=== PATIENT | female | born 1960 | race Caucasian/White ===

== ENCOUNTER → 2016-10-05 | Outpatient (CLI) | payer OTHER ==
[~2016-10-05] MED LIST: ATEN-173 PO; BUPR-83 PO; CLON0.5T3 PO; CYAN10002 IM; FLNCV PO; FRRS300 PO; PANT40TA PO
[2016-10-05 18:06] LABS: BASO ABS # 0.05 K/uL (0-0.2); COMPLETE YES; HEMATOCRIT 34.5 % (37-47); IG% 0.2 %; LYMPH % 21.8 %; MEAN CELL VOLUME 93.5 fL (80-100); MEAN CORPUSCULAR HEMOGLOBIN 30.6 pg (25-34); MEAN CORPUSCULAR HGB CONC 32.8 g/dl (32-36); MEAN PLATELET VOLUME 10.2 fL (7.4-10.4); MONO % 9.5 %; NEUT % 62.5 %; PLATELET COUNT 254 K/uL (130-400); RED BLOOD COUNT 3.69 M/uL (4.2-5.4); WHITE BLOOD COUNT 5.05 K/uL (4.8-10.8)
--- NOTE | 2016-10-05 18:13 | DIAGNOSTIC IMAGING REPORT ---
CERVICAL SPINE 2 OR 3 VIEWS CLINICAL HISTORY: M54.12 Cervical radiculopathY COMPARISON STUDY: No previous studies for comparison. FINDINGS: The prevertebral soft tissues are normal. There are moderately multilevel degenerative changes most pronounced the C4-5 through C7-T1 levels. There is suspected mild foraminal encroachment due to uncinate spurring at the C5-6 and C6-7 levels bilaterally. No destructive lesions are visualized. IMPRESSION: Moderate multilevel degenerative change. No acute fractures or traumatic subluxations identified Electronically signed by: Andrew Stokes M.D. 10/05/2016 6:11 PM Dictated Date/Time: 10/05/2016 6:10 PM
[2016-10-05 18:25] LABS: ALT/SGPT 29 U/L (12-78); AST/SGOT 20 U/L (15-37); BLOOD UREA NITROGEN 19 mg/dl (7-18); BUN/CREATININE RATIO 26.8 (10-20); CALCIUM 8.5 mg/dl (8.5-10.1); CARBON DIOXIDE 29 mmol/L (21-32); CHLORIDE 111 mmol/L (98-107); GLUCOSE 89 mg/dl (70-99); POTASSIUM 4.1 mmol/L (3.5-5.1); SODIUM 145 mmol/L (136-145)
[2016-10-05 18:28] LABS: ALKALINE PHOSPHATASE 120 U/L (45-117)
[2016-10-05 19:02] LABS: CHOLESTEROL/HDL RATIO 2.7
== END | disposition home or self-care (01) ==
LOC: C.RAD 17:30
PROVIDERS: ATTEND Nurse Practitioner
DX: M54.12 Radiculopathy, cervical region (principal); E55.9 Vitamin D deficiency, unspecified; I10 Essential (primary) hypertension; E53.8 Deficiency of other specified B group vitamins; Z13.220 Encounter for screening for lipoid disorders; D64.9 Anemia, unspecified